=== PATIENT | male | born 1945 | race Caucasian/White ===

== ENCOUNTER 2017-07-23 07:42 | Outpatient (CLI) | payer OTHER | END 2017-07-23 08:09 | disposition home or self-care (01) | LOC: NUCLEAR 07:42 | DX: I65.29 Occlusion and stenosis of unspecified carotid artery (principal); I25.10 Atherosclerotic heart disease of native coronary artery without angina pectoris ==

== ENCOUNTER 2017-08-19 08:46 | Inpatient (IN) | payer OTHER ==
[~2017-08-19] VITALS: Ht 167.6 cm; Wt 72.6 kg
== END 2017-09-01 11:52 | disposition home or self-care (01) | DRG 708 ==
LOC: O/R 08-30 06:02 → SURH 08-30 07:00
PROVIDERS: Urology
PROC: 07TC0ZZ Resection of Pelvis Lymphatic, Open Approach (ICD-10-PCS; 2017-08-30)
PROC: 0VT00ZZ Resection of Prostate, Open Approach (ICD-10-PCS; principal; 2017-08-30 07:00)
DX: C61 Malignant neoplasm of prostate (principal)